=== PATIENT | male | born 1960 | race Caucasian/White ===

== ENCOUNTER 2022-06-20 19:57 | Emergency (ER) | payer OTHER ==
[~2022-06-20] VITALS: Ht 185.4 cm; Wt 122.0 kg
[2022-06-20 21:23] LABS: Basophils # (auto) 0 10 ^3/uL (0-0.2); Basophils % (auto) 0.2 % (0.0-2.0); Eosinophils # (auto) 0 10 ^3/uL (0-0.8); Eosinophils % (auto) 0.4 % (0.0-7.0); Hematocrit 31.6 % (41.0-53.0); Hemoglobin 10.6 g/dL (13.5-17.5); Lymphocytes # (auto) 0.1 10 ^3/uL (0.4-5.4); Lymphocytes % (auto) 2.2 % (10.0-50.0); Mean Corpuscular Hemoglobin 28.9 pg (28.0-32.0); Mean Corpuscular Hgb Conc. 33.5 g/dL (32.0-36.0); Mean Corpuscular Volume 86.4 fL (80.0-100.0); Monocytes # (auto) 0 10 ^3/uL (0-1.3); Monocytes % (auto) 0.7 % (0.0-12.0); Neutrophils # (auto) 4.9 10 ^3/uL (1.6-8.6); Neutrophils % (auto) 96.5 % (37.0-80.0); Nucleated Red Blood Cells % 0.1 %; Red Blood Cells 3.66 10^6/uL (4.5-5.90); Red Cell Distribution Width 18.1 % (11.8-14.3)
[2022-06-20 21:37] LABS: INR 1.28 (0.9-1.15); Partial Thromboplastin Time 37.9 sec (24.6-33.4)
[2022-06-20 22:02] LABS: Lactic Acid w/Reflex 4.7 mmol/L (0.4-2.0)
[2022-06-20 22:03] LABS: Albumin 2.6 g/dL (3.4-5.0); Calcium 8.6 mg/dL (8.5-10.1); Potassium 3.1 mmol/L (3.5-5.1)
[2022-06-20 22:06] LABS: Bilirubin, Total 1.6 mg/dL (0.2-1.0); Total Protein 5.9 g/dL (6.4-8.2)
[2022-06-20] MEDS ORDERED: PIPERACILLIN-TAZOB 3.375GM 100 ML IV ONE (23:45)
[2022-06-21 00:47] LABS: Urine Bacteria NONE SEEN /hpf (None Seen); Urine Blood Negative /uL (Negative); Urine Hyaline Cast FEW /lpf (0 - 2); Urine Mucus FEW (None Seen); Urine WBC 1 /hpf (0 - 3)
[2022-06-21 00:51] LABS: Urine Specific Gravity > 1.050 (1.001-1.035)
[2022-06-21] MEDS ORDERED: SODIUM CHLORIDE 0.9% 1,000 ML IV ONE (01:15)
[2022-06-21] MEDS ORDERED: cefTRIAXone 1GM/50ML D5W 50 ML IV ONE (01:45)
[2022-06-21 07:01] VITALS: BP 105/52
[2022-06-21] MEDS ORDERED: IOHEXOL 350 MG/ML 100ML IJ ONE (20:04)
== END 2022-06-21 08:13 | disposition short-term general hospital (02) ==
LOC: ER 19:57 → EDBD 19:57 → ER 06-21 08:13
DX: K57.30 Diverticulosis of large intestine without perforation or abscess without bleeding (principal); R65.21 Severe sepsis with septic shock; K91.89 Other postprocedural complications and disorders of digestive system; K56.7 Ileus, unspecified; Z98.890 Other specified postprocedural states
CPT/HCPCS: 36415; 71045; 74177; 80053; 81001; 83605; 83880; 84484; 85025; 85610; 85730; 87040; 87077; 87186; 96365; 96366; 96368; 99285; J0696; J2543; J7030; Q9967